=== PATIENT | male | born 1985 | race Caucasian/White ===

== ENCOUNTER 2024-04-24 12:47 | Emergency (ER) | payer BC, SELFPAY ==
[2024-04-24] VITALS (9 sets, daily range): BP systolic 116–131; BP diastolic 74–88; PULSE 58–63; BMI 31.6
[2024-04-24 13:18] LABS: % Basophils 0.6 % (0-2); % Eosinophils 1.1 % (0-6); % Immature Granulocytes 0.4 % (0-0.5); % Lymphocytes 29.3 % (20.5-51.1); % Neutrophils 60.6 % (42.2-75.2); Absolute Basophils 0.1 10^3/uL (0-0.2); Absolute Eosinophils 0.1 10^3/uL (0-0.7); Absolute Lymphocytes 2.5 10^3/uL (1.2-3.4); Absolute Monocytes 0.7 10^3/uL (0.1-0.6); Absolute Neutrophils 5.1 10^3/uL (1.4-6.5); Hematocrit 44.7 % (39.0-52.0); Hemoglobin 15.3 g/dL (13.0-18.0); Mean Corp Hgb Conc. 34.2 g/dL (33.0-37.0); Mean Corpuscular Hgb 32.1 pg (27.0-31.0); Mean Corpuscular Volume 93.7 fL (80.0-94.0); Mean Platelet Volume 8.9 fL (7.4-10.4); Nucleated Red Blood Cells % 0 % (-); Platelet Count 273 10^3/uL (130-400); Red Blood Cell Count 4.77 10^6/uL (4.70-6.10); Red Cell Dist. Width 12.1 % (11.5-14.5); White Blood Cell Count 8.5 10^3/uL (4.8-10.8)
[2024-04-24 13:57] LABS: ALT (SGPT) 26 U/L (0-50); AST (SGOT) 26 U/L (17-59); Albumin 4.4 g/dl (3.5-5.0); Alkaline Phosphatase 80 U/L (38-126); Blood Urea Nitrogen 14 mg/dl (9-20); Calcium 9.4 mg/dl (8.4-10.2); Carbon Dioxide 27 mmol/L (22-30); Chloride 103 mmol/L (98-107); Estimated Creatinine Clearance > 125 ml/min; Glucose 83 mg/dl (70-99); Sodium 139 mmol/L (135-145); Total Bilirubin 0.7 mg/dl (0.2-1.3); Total Protein 7.2 g/dl (6.3-8.2); eGFR > 60.00
--- NOTE | 2024-04-24 14:37 | ED.GENMED ---
History of Present Illness
General
Chief Complaint: Fainting/Passed Out
Source: patient and spouse
Exam Limitations: none
Time Seen by Provider: 04/24/24 13:12
Nursing documentation reviewed up to this point in time: agreed with
Travel History
Have you had any contact with someone who has COVID-19?: No
Do you have any symptoms of coronavirus? Fever > 100 degrees, chills, cough, shortness of breath, sore throat, loss of taste or smell, muscle aches, or headache?: No
History of Present Illness
History of Present Illness:
38-year-old male with history of urethral stricture, difficulty urinating, having to strain to urinate, saw urology Dr. Field about 3 years ago who widened the stricture and it helped for a while but he is starting to have symptoms again. He
states 2 nights ago he woke up at 1 AM and went to the bathroom to urinate, while he was standing there straining to urinate he felt lightheaded and passed out, he hit his forehead on the wall, he got right back up and attempted to urinate again and
passed out again, this time his heard him and went to find him on the floor but awake. He felt nauseous for about 20 minutes but has not felt nauseous since. There is been no vomiting. He denies headache. His neck is 'a little sore.'
He has a history of fainting or near syncope. He had a similar incident 3 months ago, he sometimes feels lightheaded in the shower.
He is asymptomatic at this time
Past History
Past History
ED Past Medical History: Other (chronic trouble urinating)
ED Past Surgical History: Urological (urethral stricture dilitation)
Social History
Tobacco: Non-smoker
Alcohol: Occasional
Personal:
Living: with family
Employment: Employed
Review of Systems
Review of Systems
Allergies reviewed?: Yes
All Other Systems: ROS reviewed and negative except as documented in HPI and ROS
Constitutional: Denies fever or fatigue
Respiratory: Denies trouble breathing
Cardiac: Reports syncope; Denies chest pain, diaphoresis or palpitations
ABD/GI: Denies abdominal pain, nausea, vomiting or diarrhea
: Reports difficulty voiding (Chronically has to push to urinate)
Musculoskeletal: Reports no symptoms
Skin: Reports no symptoms
Neurological: Reports no symptoms
Phy Exam
Physical Exam
Physical Exam:
GENERAL: No acute distress. A&Ox3.
CONSTITUTIONAL: Afebrile.
EYES: PERRL, conjunctivae normal
ENMT: moist mucus membranes, Pharynx nl
RESPIRATORY: Regular respirations, nonlabored, lungs clear.
CARDIOVASCULAR: Regular rate and rhythm, no murmurs, no rubs.
GI: Soft, nontender, normal BS
MUSCULOSKELETAL: No spinal bony tenderness. Moves with ease. Well perfused.
SKIN: Warm, dry, pink
PSYCH: Normal mood and affect. Well kept, interactive and appropriate
NEUROLOGIC: Awake, alert and oriented. No focal neurological deficits. Ambulates well with steady gait
Course
Orders/Labs/Results
Orders:
Orders
04/24/24 12:58
Electrocardiogram (*1) Urgent
Reason for Study: Chest Pain
04/24/24 13:05
Complete Blood Count/With Diff Urgent
Comprehensive Metabolic Panel Urgent
04/24/24 13:35
Orthostatic VS- Treatment ONCE
04/24/24 14:21
EKG- Treatment ONCE
Abnormal Lab Results
04/24/24
13:05
MCH 32.1 H pg
(27.0-31.0)
Absolute Monos (auto) 0.7 H 10^3/uL
(0.1-0.6)
04/24/24 13:05
04/24/24 13:05
Vital Signs
Initial and Last Documented VS:
Initial Vital Signs
Temp Pulse Resp BP Pulse Ox
98.4 F 65 18 122/78 98
04/24/24 12:55 04/24/24 12:55 04/24/24 12:55 04/24/24 12:55 04/24/24 12:55
Last Documented Vital Signs
Temp Pulse Resp BP Pulse Ox
97.8 F 64 15 122/82 96
04/24/24 15:09 04/24/24 15:10 04/24/24 15:10 04/24/24 15:10 04/24/24 15:10
MDM/Problems Addressed
Differential Diagnosis Includes:
Micturition syncope, orthostasis, dehydration, cardiac dysrhythmia
MDM/Problems Addressed:
38-year-old male with history of urethral stricture, difficulty urinating, having to strain to urinate, saw urology Dr. Field about 3 years ago who widened the stricture and it helped for a while but he is starting to have symptoms again. He
states 2 nights ago he woke up at 1 AM and went to the bathroom to urinate, while he was standing there straining to urinate he felt lightheaded and passed out, he hit his forehead on the wall, he got right back up and attempted to urinate again and
passed out again, this time his heard him and went to find him on the floor but awake. He felt nauseous for about 20 minutes but has not felt nauseous since. There is been no vomiting. He denies headache. His neck is 'a little sore.'
He has a history of fainting or near syncope. He had a similar incident 3 months ago, he sometimes feels lightheaded in the shower.
He is asymptomatic at this time
CBC, CMP normal
EKG NSR
Orthostatics negative
No significant personal or family cardiac history, no CP, pt felt himself getting faint, do not suspect cardiac etiology
With his history of almost passing out with straining to urinate, strongly suspect micturition syncope
Referred to [facility] for f/u
*Critical Care Note
Total Time (30-74mins, 75-104mins- exclusive of procedures): Not Applicable
ED Attending Note
-
Portions of this chart may have been created with voice recognition software.� Occasional wrong word or��sound alike� substitutions may have occurred due to the inherent limitations of voice recognition software.
Discharge Plan
Departure
Patient Disposition: Home (Routine Discharge)
Date of Disposition: 04/24/24
Time of Disposition: 14:45
Patient with high blood pressure during this ER visit?: No
Condition: Good
Discharge Problem:
Micturition syncope
Instructions: Syncope (fainting)
Referrals:
Cosme Londono MD [Active] - Next open appointment
Activity Restrictions/Additional Instructions:
As we discussed, nothing worrisome in your workup here today.
Call make an appointment with your urologist to further evaluate your difficulty with urinating
Sit or lay down immediately when you feel faint
Interventions
Interventions:
*Risk Screen - Suicide Last Done: 04/24/24 12:55
*General Assessment Last Done: 04/24/24 13:51
*Neglect/Abuse Screening Last Done: 04/24/24 12:55
ED- Fall Risk Assessment Last Done: 04/24/24 15:09
*ED COVID-19 Vaccine History Last Done: 04/24/24 12:55
*Nursing Disposition Last Done: 04/24/24 15:09
ED- Cardiac Assessment Last Done: 04/24/24 13:44
ED- Neurological Assessment Last Done: 04/24/24 13:44
Discharge Date and Time
Discharge Date/Time: 04/24/24 15:25
Print Language: CHINESE
== END 2024-04-24 15:25 | disposition home or self-care (01) ==
LOC: EMR 12:47
PROVIDERS: Emergency Medicine; EMERGENCY PHYSICIAN Emergency Medicine; FAMILY PHYSICIAN Family Medicine
DX: R55 Syncope and collapse (principal); R11.0 Nausea; R39.16 Straining to void; W18.39XA Other fall on same level, initial encounter; Y93.E8 Activity, other personal hygiene; Y92.002 Bathroom of unspecified non-institutional (private) residence as the place of occurrence of the external cause; N35.919 Unspecified urethral stricture, male, unspecified site
CPT/HCPCS: 99283; 80053; 85025; 93005

== ENCOUNTER 2025-09-28 06:26 | Day surgery (SDC) | payer BC, SELFPAY ==
[2025-09-28 10:00] VITALS: BMI 30.7
[2025-09-28 10:10] VITALS: BP 128/78
[2025-09-28 10:21] VITALS: BMI 30.7
[2025-09-28] MEDS: NORMOSOL-R/PLASMALYTE-A 1000 IV (10:28)
[2025-09-28 11:45] VITALS: BP 128/78; BP 138/78
[2025-09-28 12:00] VITALS: BP 139/94
[2025-09-28 12:15] VITALS: BP 127/89
[2025-09-28 12:30] VITALS: BP 118/89
[2025-09-28 12:45] VITALS: BP 126/82
[2025-09-28] MEDS: TYLENOL 650 MG PO (12:53)
== END 2025-09-28 12:57 | disposition home or self-care (01) ==
LOC: SDS 06:26
PROVIDERS: ATTENDING PHYSICIAN Surgery
DX: N35.919 Unspecified urethral stricture, male, unspecified site (principal); R33.9 Retention of urine, unspecified; R39.15 Urgency of urination; Z87.448 Personal history of other diseases of urinary system; Z98.890 Other specified postprocedural states
CPT/HCPCS: 52281; 74420; 76000